=== PATIENT | female | born 1980 | race Caucasian/White ===

== ENCOUNTER 2023-12-22 07:59 | Emergency (ER) | payer MEDICARE ==
[~2023-12-22] VITALS: Ht 160 cm; Wt 88.5 kg
[2023-12-22 08:16] VITALS: PULSE 83; RESP 19; TEMP 97.8
[2023-12-22] MEDS: KETOROLAC TROMETHAMINE 60 MG/2 ML VIAL IM ONE (09:51)
[2023-12-22] MEDS: ONDANSETRON HCL 4 MG ORAL DISINTEGRATING TAB PO ONE (09:52)
[2023-12-22] MEDS: CYCLOBENZAPRINE HCL 10 MG TAB PO ONE (09:52)
[2023-12-22] MEDS ORDERED: CYCLOBENZAPRINE10 MG PO (10:55)
[2023-12-22 11:04] VITALS: BP 134/86; PULSE 80; RESP 18; O2SAT 10
== END 2023-12-22 11:06 | disposition home or self-care (01) ==
LOC: ER 08:08
DX: M79.621 Pain in right upper arm (principal); M54.6 Pain in thoracic spine; M54.14 Radiculopathy, thoracic region
CPT/HCPCS: 72125; 72128; 99282; J1885; Q0162